=== PATIENT | male | born 1970 | race Caucasian/White ===

== ENCOUNTER → 2023-03-13 13:27 | Outpatient (CLI) | payer SELFPAY ==
[2023-03-13 12:59] LABS: Amphetamine/Metha Screen,Urine Negative ng/ml (<1000); Barbiturates Screen,Urine Negative ng/ml (<200)
[2023-03-13 13:00] LABS: Benzodiazepines Screen,Urine Negative ng/ml (<200)
[2023-03-13 13:02] LABS: Cannabinoid Screen,Urine Negative ng/ml (<50)
[2023-03-13 13:03] LABS: Cocaine Screen,Urine Negative ng/ml (<300)
[2023-03-13 13:04] LABS: Methadone Screen,Urine Negative ng/ml (<300); Opiate Screen,Urine Positive ng/ml (<300)
[2023-03-13 13:05] LABS: Phencyclidine Screen,Urine Negative ng/ml (<25)
== END ==
PROVIDERS: PCP Emergency Medicine; Visit Provider Emergency Medicine
DX: M54.12 Radiculopathy, cervical region (principal); K57.92 Diverticulitis of intestine, part unspecified, without perforation or abscess without bleeding
CPT/HCPCS: 80305; 87086

== ENCOUNTER → 2023-05-11 14:24 | Outpatient (CLI) | payer OTHER, SELFPAY ==
[2023-05-11 12:04] LABS: Amphetamine/Metha Screen,Urine Negative ng/ml (<1000)
[2023-05-11 12:05] LABS: Barbiturates Screen,Urine Negative ng/ml (<200)
[2023-05-11 12:06] LABS: Benzodiazepines Screen,Urine Negative ng/ml (<200); Cannabinoid Screen,Urine Negative ng/ml (<50)
[2023-05-11 12:07] LABS: Cocaine Screen,Urine Negative ng/ml (<300)
[2023-05-11 12:08] LABS: Methadone Screen,Urine Negative ng/ml (<300); Opiate Screen,Urine Positive ng/ml (<300)
[2023-05-11 12:11] LABS: Phencyclidine Screen,Urine Negative ng/ml (<25)
[2023-05-11 18:47] LABS: Basophils % 0.7 % (0.1-2.0); Eosinophils # 0.1 K/mm3 (0.0-0.4); Eosinophils % 1.8 % (0.1-12.0); Hematocrit 49.4 % (42.0-52.0); Lymphocytes # 1.1 K/mm3 (0.7-4.5); Lymphocytes % 26.9 % (10-50); Mean Corpuscular HGB Conc 34.4 g/dL (31.8-35.4); Mean Corpuscular Hemoglobin 32.4 pg (27.0-31.2); Mean Corpuscular Volume 94.1 fl (80-94); Mean Platelet Volume 7.5 fl (7.4-10.4); Monocytes # 0.3 K/mm3 (0.1-1.0); Monocytes % 6.9 % (1.7-9.3); Neutrophils # 2.6 K/mm3 (1.8-7.8); Neutrophils % 63.7 % (37.0-80.0); Platelet Count 152 K/mm3 (142-424); Red Blood Count 5.26 M/mm3 (4.60-6.20); Red Cell Distribution Width 13.5 % (11.5-17.5); White Blood Count 4.1 K/mm3 (4.8-10.8)
[2023-05-11 18:56] LABS: Alanine Aminotransferase 23 U/L (12-78); Albumin Level 4.5 g/dl (3.5-5.0); Albumin/Globulin Ratio 1.6 (1.1-1.8); Alkaline Phosphatase 63 U/L (38-126); Aspartate Amino Transferase 25 U/L (17-59); Bilirubin,Total 0.2 mg/dl (0.2-1.3); Blood Urea Nitrogen 14 mg/dl (9-20); Calcium 9.3 mg/dl (8.4-10.2); Carbon Dioxide 29 mmol/L (22.0-30.0); Chloride 105 mmol/L (98-107); Chol/HDL Ratio 4.8 (1-3.5); Cholesterol 172 mg/dl (140-200); Estimated Glomerular Filt Rate 64 ml/min (>60); GFR (African American) 77 ML/MIN (>60); Globulin 2.9 g/dL (1.3-3.2); Glucose 70 mg/dl (74-100); HDL Cholesterol 36 mg/dl (40-60); Sodium 141 mmol/L (136-145); Total Protein,Serum 7.4 g/dl (6.3-8.2); Triglycerides 171 mg/dl (30-150); VLDL Cholesterol 34 mg/dL (0-40)
[2023-05-11 19:07] LABS: Direct LDL Cholesterol 105.76 mg/dL (100-129)
[2023-05-11 19:15] LABS: 25-OH Vitamin D, Total 35.1 ng/mL (30-100)
[2023-05-11 19:27] LABS: Thyroid Stimulating Hormone 1.49 uIU/mL (0.465-4.68)
== END ==
PROVIDERS: PCP Emergency Medicine; Visit Provider Emergency Medicine
DX: M54.12 Radiculopathy, cervical region (principal); R53.83 Other fatigue; Z79.899 Other long term (current) drug therapy
CPT/HCPCS: 80053; 80061; 80305; 82306; 84436; 84443; 85025

== ENCOUNTER → 2023-07-06 09:26 | Outpatient (CLI) | payer OTHER, SELFPAY ==
[2023-07-06 19:41] LABS: Amphetamine/Metha Screen,Urine Negative ng/ml (<1000); Barbiturates Screen,Urine Negative ng/ml (<200)
[2023-07-06 19:42] LABS: Benzodiazepines Screen,Urine Negative ng/ml (<200)
[2023-07-06 19:43] LABS: Cannabinoid Screen,Urine Negative ng/ml (<50); Cocaine Screen,Urine Negative ng/ml (<300)
[2023-07-06 19:44] LABS: Methadone Screen,Urine Negative ng/ml (<300); Opiate Screen,Urine Positive ng/ml (<300)
[2023-07-06 19:45] LABS: Phencyclidine Screen,Urine Negative ng/ml (<25)
== END ==
PROVIDERS: PCP Emergency Medicine; Visit Provider Emergency Medicine
DX: M54.16 Radiculopathy, lumbar region (principal)
CPT/HCPCS: 80305

== ENCOUNTER → 2023-08-21 09:11 | Outpatient (CLI) | payer OTHER, SELFPAY ==
[2023-08-21 23:32] LABS: Amphetamine/Metha Screen,Urine Negative ng/ml (<1000)
[2023-08-21 23:33] LABS: Barbiturates Screen,Urine Negative ng/ml (<200)
[2023-08-21 23:51] LABS: Cannabinoid Screen,Urine Negative ng/ml (<50)
[2023-08-21 23:52] LABS: Cocaine Screen,Urine Negative ng/ml (<300)
[2023-08-21 23:53] LABS: Methadone Screen,Urine Negative ng/ml (<300)
[2023-08-21 23:55] LABS: Opiate Screen,Urine Positive ng/ml (<300)
[2023-08-21 23:56] LABS: Phencyclidine Screen,Urine Negative ng/ml (<25)
[2023-08-22 00:24] LABS: Benzodiazepines Screen,Urine Negative ng/ml (<200)
== END ==
LOC: LAB.DROPOF 08-22 09:11
PROVIDERS: PCP Emergency Medicine; Visit Provider Emergency Medicine
DX: Z79.899 Other long term (current) drug therapy (principal)
CPT/HCPCS: 80305

== ENCOUNTER 2023-11-01 22:09 | Outpatient (CLI) | payer OTHER, SELFPAY ==
[2023-11-01 19:04] LABS: Alanine Aminotransferase 19 U/L (12-78); Albumin Level 4.7 g/dl (3.5-5.0); Alkaline Phosphatase 60 U/L (38-126); Anion Gap 10.2 mEq/L (5-15); Aspartate Amino Transferase 26 U/L (17-59); Bilirubin,Total 0.4 mg/dl (0.2-1.3); Blood Urea Nitrogen 12 mg/dl (9-20); Calcium 9.2 mg/dl (8.4-10.2); Carbon Dioxide 29 mmol/L (22.0-30.0); Chloride 104 mmol/L (98-107); Estimated Glomerular Filt Rate 89 ml/min (>60); GFR (African American) 107 ML/MIN (>60); Globulin 2.4 g/dL (1.3-3.2); Glucose 99 mg/dl (74-100); Potassium 4.2 mmoL/L (3.5-5.1); Sodium 139 mmol/L (136-145); Total Protein,Serum 7.1 g/dl (6.3-8.2)
[2023-11-01 19:32] LABS: Thyroid Stimulating Hormone 1.26 uIU/mL (0.465-4.68)
[2023-11-01 19:52] LABS: Vitamin B12 390 pg/mL (239-931)
== END 2023-11-01 23:59 ==
LOC: LAB.DROPOF 22:10
PROVIDERS: PCP Internal Medicine; Visit Provider Internal Medicine
DX: R53.83 Other fatigue (principal); E53.8 Deficiency of other specified B group vitamins
CPT/HCPCS: 80053; 82607; 84443

== ENCOUNTER 2024-05-28 08:30 | Outpatient (CLI) | payer OTHER, SELFPAY ==
--- NOTE | 2024-05-28 08:33 | MR_ITS ---
FINAL REPORT CLINICAL HISTORY: cervical back pain. bilateral hand numbness COMPARISON: None FINDINGS: Multi planar MR imaging was obtained of the cervical spine with and without contrast. Unable to finish the contrast portion of the exam as patient could not tolerate due to pain and numbness. There is abnormal decreased signal throughout the cervical discs. The vertebrae are of normal height. There is no malalignment. The cervical cord demonstrates normal signal and configuration. C2-C3: There is no evidence of significant disc bulge or protrusion. There is no significant facet hypertrophy. C3-C4: Mild disc bulge. Mild bilateral neuroforaminal narrowing. C4-C5: Mild disc bulge. Mild bilateral neuroforaminal narrowing C5-C6: Large posterior osteophyte eccentric to the right. High-grade compromise right side of the spinal canal. High-grade right and moderate to high-grade left neuroforaminal narrowing. Findings well seen on images 36 and 37 of series 5. C6-C7: Moderate diffuse disc bulge. Moderate bilateral neuroforaminal narrowing. C7-T1: There is no evidence of significant disc bulge or protrusion. There is no significant facet hypertrophy. There is no abnormal contrast enhancement. IMPRESSION: Contrast portion of the exam not completed due to patient pain and numbness. Large posterior osteophyte eccentric to the right at C5-6 with high-grade right neuroforaminal narrowing. Reviewed, Interpreted and Dictated by Jun Rodriguez MD Transcribed by Suzi Miramontes Authenticated and [facility]
== END 2024-05-28 23:59 | disposition home or self-care (01) ==
LOC: RAD 08:33
PROVIDERS: PCP Internal Medicine; Visit Provider Internal Medicine
DX: M54.12 Radiculopathy, cervical region (principal)
CPT/HCPCS: 72141

== ENCOUNTER 2025-01-01 14:10 | Outpatient (CLI) | payer OTHER, SELFPAY ==
[2025-01-01 17:41] LABS: Basophils % 0.5 % (0.1-2.0); Eosinophils # 0.1 K/mm3 (0.0-0.4); Eosinophils % 1.5 % (0.1-12.0); Hematocrit 45.4 % (42.0-52.0); Hemoglobin 15.9 g/dL (14.1-18.0); Lymphocytes # 0.9 K/mm3 (0.7-4.5); Lymphocytes % 15.7 % (10-50); Mean Corpuscular Hemoglobin 31.2 pg (27.0-31.2); Mean Corpuscular Volume 89.2 fl (80-94); Mean Platelet Volume 9.8 fl (7.4-10.4); Monocytes # 0.4 K/mm3 (0.1-1.0); Monocytes % 6.6 % (1.7-9.3); Neutrophils # 4.5 K/mm3 (1.8-7.8); Neutrophils % 75.5 % (37.0-80.0); Platelet Count 154 K/mm3 (142-424); Red Blood Count 5.09 M/mm3 (4.60-6.20); Red Cell Distribution Width 12.8 % (11.5-17.5); White Blood Count 5.9 K/mm3 (4.8-10.8)
[2025-01-01 18:16] LABS: Alanine Aminotransferase 16 U/L (12-78); Albumin Level 4.3 g/dl (3.5-5.0); Albumin/Globulin Ratio 1.7 (1.1-1.8); Alkaline Phosphatase 58 U/L (38-126); Anion Gap 13.1 mEq/L (5-15); Aspartate Amino Transferase 26 U/L (17-59); Bilirubin,Total 0.7 mg/dl (0.2-1.3); Blood Urea Nitrogen 12 mg/dl (9-20); Calcium 9.2 mg/dl (8.4-10.2); Carbon Dioxide 24 mmol/L (22.0-30.0); Chloride 103 mmol/L (98-107); Chol/HDL Ratio 4.4 (1-3.5); Cholesterol 142 mg/dl (140-200); Estimated Glomerular Filt Rate 88 ml/min (>60); GFR (African American) 107 ML/MIN (>60); Globulin 2.5 g/dL (1.3-3.2); Glucose 73 mg/dl (74-100); HDL Cholesterol 32 mg/dl (40-60); Potassium 4.1 mmoL/L (3.5-5.1); Sodium 136 mmol/L (136-145); Total Protein,Serum 6.8 g/dl (6.3-8.2); Triglycerides 128 mg/dl (30-150); VLDL Cholesterol 26 mg/dL (0-40)
[2025-01-01 18:34] LABS: Direct LDL Cholesterol 94.95 mg/dL (100-129)
[2025-01-01 18:48] LABS: HIV Combo NEGATIVE (Negative)
[2025-01-01 18:54] LABS: Hepatitis C Ab Qual. W/ RFX NEGATIVE (Negative)
[2025-01-01 21:34] LABS: Hemoglobin A1C 5.1 % (4.0-6.0)
== END 2025-01-01 23:59 | disposition home or self-care (01) ==
LOC: LAB.DROPOF 01-02 10:54
PROVIDERS: PCP Internal Medicine; Visit Provider Internal Medicine
DX: Z00.00 Encounter for general adult medical examination without abnormal findings (principal); Z11.59 Encounter for screening for other viral diseases; Z13.1 Encounter for screening for diabetes mellitus; Z13.220 Encounter for screening for lipoid disorders; Z11.4 Encounter for screening for human immunodeficiency virus [HIV]
CPT/HCPCS: 80053; 80061; 83036; 85025; 86803; 87389

== ENCOUNTER 2025-08-14 09:27 | Outpatient (CLI) | payer OTHER, SELFPAY ==
--- NOTE | 2025-08-14 09:45 | MR_ITS ---
FINAL REPORT TECHNIQUE: Multiplanar MR without gadolinium enhancement CLINICAL HISTORY: Lumbar spine pain. LOW BACK PAIN WORSE ON LEFT SIDE. DIFFICULTY LIFTING LEG. FINDINGS: Sagittal images show normal vertebral height. Alignment is normal. Marrow signal pattern is unremarkable. T12-L1: Minimal annular disc bulge. L1-2: Unremarkable L2-3: Unremarkable L3-4: Moderate annular disc bulge and facet overgrowth. Moderate central canal stenosis and moderate bilateral neuroforaminal narrowing. L4-5: Mild annular disc bulge and mild facet overgrowth. Mild central canal stenosis and mild neuroforaminal narrowing. L5-S1: Moderate central disc protrusion minimally contacting the bilateral S1 nerve roots. Moderate bilateral neuroforaminal narrowing. IMPRESSION: 1. Multilevel degenerative disc disease, most pronounced at L3-4 and L4-5. Reviewed, Interpreted and Dictated by Rodolfo Osuna MD Transcribed by Nini Bundy Authenticated and [facility]
== END 2025-08-14 23:59 | disposition home or self-care (01) ==
PROVIDERS: PCP Internal Medicine; Visit Provider Internal Medicine
DX: M51.369 Other intervertebral disc degeneration, lumbar region without mention of lumbar back pain or lower extremity pain (principal)
CPT/HCPCS: 72148